=== PATIENT | male | born 1955 | race Caucasian/White ===

== ENCOUNTER 2018-07-21 18:36 | Emergency (ER) | payer BC ==
--- NOTE | 2018-07-21 19:25 | ER Document Report ---
ED Medical Screen (RME) - General Chief Complaint: Leg Pain Stated Complaint: LEFT LEG PAIN, SWELLING Time Seen by Provider: 07/21/18 19:23 Mode of Arrival: Wheelchair Information source: Patient TRAVEL OUTSIDE OF THE [place] IN LAST 30 DAYS: No - HPI Patient complains to provider of: L calf pain Onset: Yesterday - Pt. has h/o DVT and has been driving long distances recently. Noticed pain in L calf with minimal erythema and swelling. - Related Data Allergies/Adverse Reactions: No Known Allergies Allergy (Unverified 04/30/16 12:35) Past Medical History - Past Medical History Cardiac Medical History: Reports: Hx Coronary Artery Disease - Minimal asymptomatic plaques noted on imaging., Hx DVT - Diagnosed January 2016 Malignancy Medical History: Reports Hx Skin Cancer - Basal cell carcinoma on nose, removed 2006 GI Medical History: Reports: Hx Diverticulitis Musculoskeltal Medical History: Reports Hx Arthritis - Osteoarthritis Past Surgical History: Reports: Hx Herniorrhaphy - Bilateral laparoscopic inguinal hernia repair, right in 2002, left in 2003. Physical Exam - Vital signs Vitals: Temp Pulse Resp BP Pulse Ox 97.5 F 71 18 142/95 H 96 07/21/18 18:41 07/21/18 18:41 07/21/18 18:41 07/21/18 18:41 07/21/18 18:41 Course - Vital Signs Vital signs: Temp Pulse Resp BP Pulse Ox 97.5 F 71 18 142/95 H 96 07/21/18 18:41 07/21/18 18:41 07/21/18 18:41 07/21/18 18:41 07/21/18 18:41
--- NOTE | 2018-07-21 21:34 | ER Document Report ---
ED General - General Chief Complaint: Leg Pain Stated Complaint: LEFT LEG PAIN, SWELLING Time Seen by Provider: 07/21/18 19:23 Mode of Arrival: Wheelchair TRAVEL OUTSIDE OF THE [place] IN LAST 30 DAYS: No - HPI Patient complains to provider of: Left leg pain Notes: Patient coming in for evaluation of left leg pain. Patient states multiple recent trips to [place] and is concerned that he may have a blood clot. Patient states he did have a blood clot in recent history however there is no on any chronic blood thinning medication. Patient otherwise resting comfortably denies any trauma to the leg. - Related Data Allergies/Adverse Reactions: No Known Allergies Allergy (Unverified 04/30/16 12:35) Past Medical History - General Information source: Patient - Social History Smoking Status: Never Smoker Frequency of alcohol use: Social Drug Abuse: None Family History: CAD, Malignancy - Prostate cancer Patient has suicidal ideation: No Patient has homicidal ideation: No - Past Medical History Cardiac Medical History: Reports: Hx Coronary Artery Disease - Minimal asymptomatic plaques noted on imaging., Hx DVT - Diagnosed January 2016 Renal/ Medical History: Denies: Hx Peritoneal Dialysis Malignancy Medical History: Reports Hx Skin Cancer - Basal cell carcinoma on nose, removed 2006 GI Medical History: Reports: Hx Diverticulitis Musculoskeletal Medical History: Reports Hx Arthritis - Osteoarthritis Past Surgical History: Reports: Hx Herniorrhaphy - Bilateral laparoscopic inguinal hernia repair, right in 2002, left in 2003., Hx Orthopedic Surgery - R hip replacement Review of Systems - Review of Systems Constitutional: No symptoms reported EENT: No symptoms reported Cardiovascular: No symptoms reported Respiratory: No symptoms reported Gastrointestinal: No symptoms reported Genitourinary: No symptoms reported Male Genitourinary: No symptoms reported Musculoskeletal: Other - Leg pain Skin: No symptoms reported Hematologic/Lymphatic: No symptoms reported Neurological/Psychological: No symptoms reported -: Yes All other systems reviewed and negative Physical Exam - Vital signs Vitals: Temp Pulse Resp BP Pulse Ox 97.5 F 71 18 142/95 H 96 07/21/18 18:41 07/21/18 18:41 07/21/18 18:41 07/21/18 18:41 07/21/18 18:41 Interpretation: Normal - General General appearance: Appears well, Alert - HEENT Head: Normocephalic, Atraumatic Eyes: Normal Pupils: PERRL - Respiratory Respiratory status: No respiratory distress - Cardiovascular Murmur: No - Abdominal Inspection: Normal Distension: No distension Bowel sounds: Normal Tenderness: Nontender Organomegaly: No organomegaly - Back Back: Normal, Nontender Notes: Fine rash nonpruritic - Extremities General upper extremity: Normal inspection, Nontender, Normal color, Normal ROM, Normal temperature General lower extremity: Normal inspection, Nontender, Normal color, Normal ROM, Normal temperature, Normal weight bearing. No: Tim's sign - Neurological Neuro grossly intact: Yes Cognition: Normal Orientation: AAOx4 [place] Coma Scale Eye Opening: Spontaneous Agus Coma Scale Verbal: Oriented [place] Coma Scale Motor: Obeys Commands Agus Coma Scale Total: 15 Speech: Normal Motor strength normal: LUE, RUE, LLE, RLE Sensory: Normal - Psychological Associated symptoms: Normal affect, Normal mood - Skin Skin Temperature: Warm Skin Moisture: Dry Skin Color: Normal Course - Re-evaluation Re-evalutation: 07/21/18 23:18 Doppler of the leg was negative examination is more consistent with a muscle skeletal etiology of the patient's pain. Patient was recommended to perform physical therapy exercises at home. Patient voiced understanding will be discharged home - Vital Signs Vital signs: Temp Pulse Resp BP Pulse Ox 98.1 F 63 14 148/84 H 97 07/21/18 22:08 07/21/18 22:08 07/21/18 22:08 07/21/18 22:08 07/21/18 22:08 Discharge - Discharge Clinical Impression: Leg pain Qualifiers: Laterality: left Qualified Code(s): M79.605 - Pain in left leg Condition: Good Disposition: HOME, SELF-CARE Instructions: Leg Pain Nonspecific ([facility]) Additional Instructions: Your Doppler was negative tonight for a DVT please make sure you follow-up with your primary care physician would recommend taking Tylenol Motrin for pain control return to the ER for any other worrisome conditions/symptoms
[2018-07-21 22:16] VITALS: BP 148/84
--- NOTE | 2018-07-22 08:49 | XCELERA REPORT ---
[address] [place] [facility] [address] Lower Extremity Venous Evaluation Procedure: Color flow and duplex imaging of the veins of the left lower extremity as well as the right Common Femoral vein. Right Sided Venous Evaluation The right common femoral vein is fully compressible. Spontaneous and phasic flow is present in the right common femoral vein. Left Sided Venous Evaluation Normal vessel filling wall to wall, compression and augmentation as well as Colour flow down to the infrageniculate veins. Interpretation Summary No duplex evidence of DVT or obstruction in the left lower extremity nor in the right Common Femoral vein. Name: MAL MARTÍNEZ Kings Age: 62 yrs Gender: Male : 1955 Patient Status: Emergency Patient Location: ER Study Date: 07/21/2018 08:09 PM Reason For Study: L calf pain Ordering Physician: SHERYL AYALA Performed By: Jovani Biswas : SHERYL AYALA > Stefan Chow
== END 2018-07-21 22:16 | disposition home or self-care (01) ==
LOC: ER 18:36
DX: M79.605 Pain in left leg (principal); M79.89 Other specified soft tissue disorders; I25.10 Atherosclerotic heart disease of native coronary artery without angina pectoris
CPT/HCPCS: 93971; 99284